=== PATIENT | male | born 1990 ===

== ENCOUNTER 2024-12-31 09:41 | Emergency (ER) | payer MEDICAID, SELFPAY ==
[2024-12-31 09:43] VITALS: BP 121/69; PULSE 82; RESP 14; TEMP 36.4; O2SAT 95; BMI 39.2
--- NOTE | 2024-12-31 10:45 | ED.GENADULT ---
HPI - General Adult General Chief complaint: Skin/Abscess/Foreign Body Stated complaint: ? Bug Bites Time Seen by Provider: 12/31/24 10:44 Source: patient Mode of arrival: ambulatory Limitations: no limitations History of Present Illness ED Provider: Anais Castañeda PA-C HPI narrative: 34-year-old male without significant medical history presents to the ED due to 2 days of swollen mosquito bites. [place] states he was bitten several times by mosquitos. Patient states he woke up Monday morning and noticed the bites swelling, with increased itching and clear drainage of multiple bites on bilateral forearms, right hand, left flank, and right neck. Patient states he has been using [id number] calamine lotion, Benadryl, and hydrocortisone cream without effect. Patient states he has been doing cold compresses and was able to sleep last night as it offered site relief. He denies difficulty breathing, throat swelling, Fever, chills, chest pain, shortness of breath, nausea, vomiting MD complaint: Multiple itching/swelling mosquito bites Onset (ago): day(s) (2 ) Location: neck, back ( left flank) and upper extremity ( B/ L forearms, right hand) Radiation: non-radiation Severity: mild Pain Consistency: constant Relieving factors: cold therapy Exacerbating factors: none Associated symptoms: denies other symptoms Related Data Previous Rx's ?Medication ?Instructions ?Recorded prednisone 20 mg tablet 20 mg PO DAILY 5 days #5 tabs 12/31/24 Allergies Allergy/AdvReac Type Severity Reaction Status Date / Time No Known Allergies Allergy Verified 12/31/24 09:45 Review of Systems Review of Systems: CONST: Negative for fever, body aches and chills. HENT: Negative for neck pain/stiffness, headache, congestion, sore throat, swelling. EYES: Negative for discharge/pain or vision changes. RESP: Negative for cough/hemoptysis and shortness of breath. CV: Negative chest pain, difficulty breathing, palpitations. ABD: Negative pain, nausea, vomiting. : Negative increase frequency, dysuria, blood in urine or stool. MUSC: Negative for muscle aches, edema. SKIN: Negative rash, lesions/sores. Multiple itching mosquito bites over B/L arms, R hand, L flank, L side neck NEURO: Negative headache, dizziness, weakness. Yes all other systems are reviewed and are negative [facility] Past Medical History Attestation statement: The following information was validated with the patient. Social History Social History Advance Directives: No Advance Directives Information Provided: Yes Do you have a plan to hurt others: No Plan Physical Exam ED Vital Signs: Vital Signs - 24 hr 12/31/24 09:43 Temperature 97.5 F Pulse Rate 82 Respiratory Rate 14 Blood Pressure 121/69 Pulse Oximetry 95 Oxygen Delivery Method Room Air BMI result Body Mass Index 39.2 GENERAL APPEARANCE: ?AxOx4, generally well-appearing, no acute distress. HEENT: ?NC, AT. MMM. EOMI, clear conjunctiva, oropharynx clear, without edema. NECK: ?Supple without lymphadenopathy.? No stiffness or restricted ROM. HEART:? Normal rate and regular rhythm, normal S1/S1, no m/r/g LUNGS:? CTAB, moving air well. No crackles or wheezes are heard. ABDOMEN: ?Soft, nontender, nondistended with good bowel sounds heard. BACK: No CVAT, no obvious deformity. EXTREMITIES: ?Without cyanosis, clubbing or edema. NEUROLOGICAL: ?Grossly nonfocal. Alert and oriented, moving all 4 extremities. Observed to ambulate with normal gait. Skin: ?Warm and dry without any rash. Multiple purititc, papular, warm, edematous mosquito bites over B/L forearms, R hand, L neck, and L flank. Medical Decision Making Medical Decision Making MDM Narrative: 34-year-old male without significant medical history presents to the ED due to 2 days of swollen mosquito bites. [place] states he was bitten several times by mosquitos. Patient states he woke up Monday morning and noticed the bites swelling, with increased itching and clear drainage of multiple bites on bilateral forearms, right hand, left flank, and right neck. Patient states he has been using [id number]-qpwfvrc calamine lotion, Benadryl, and hydrocortisone cream without effect. Patient states he has been doing cold compresses and was able to sleep last night as it offered site relief. He denies difficulty breathing, throat swelling, VSS, in no acute distress, nontoxic appearing. On physical exam there are multiple papular, pruritic, warm,edematous mosquito bite over B/ L forearms, right hand, left flank, left neck. No vesicular lesions- less likley herpes zoster. Patient without any swelling of the oropharynx, no difficulty breathing- less lilkely anaphylaxis. No erythema- less likley cellulitis This is most likely a systemic reaction to mosquito bites. 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 will medicate with a 5 day course of 20 mg prednisone for swelling, encourage patient to use [id number]-zvg-zlnsyih hydrocortisone lotion, and cold compresses for management. Differential Diagnosis Differential Diagnoses: The differential diagnosis associated with the presentation includes Cellulitis Herpes zoster Anaphylaxis Urticaria Admission/Observation Consideration of admission/observation: Escalation of care including admission/observation considered External Record Review External record reviewed: Inpatient record, Office record and Outpatient record Discharge Plan Discharge Clinical Impression: Mosquito bite allergy Patient Disposition: Home, Self-Care Instructions: Cold Compress or Soak (ED) Additional Instructions: you were evaluated in the ED today due to allergic reaction to mosquito bites. Your physical exam was reassuring, you had no swelling of your mouth or throat, lungs were clear when listening to them. The itchy lesions over your arms, back, neck, hand, were consistent with mosquito bites. You will be prescribed a 5 day course of 20 mg prednisone which is a steroid that will help manage the swelling. You should continue to use pfvz-vvp-thqobqf anti-itch medication such as the calamine lotion and hydrocortisone cream that you have been using. You should continue to do cold compresses or soaks to help relieve the pain and itching.In the future when you know you will be in contact with mosquitos you should take Zyrtec to help manage your allergic reaction. Please return to the emergency department if you experience difficulty breathing, itchiness of the lips,mouth or throat, chest pain, shortness of breath, nausea, vomiting, fevers over 100.4?, or any other new/ worsening/ concerning symptoms. Prescriptions: New prednisone 20 mg tablet 20 mg PO DAILY 5 Days Qty: 5 0RF Print Language: Singaporean
[2024-12-31 11:24] VITALS: BP 121/69; PULSE 82; RESP 14; TEMP 36.4; O2SAT 95
--- OUTSIDE RECORDS SUMMARY | 2024-12-31 11:31 | XMS_ITS | Encounter Summary ---
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 Name Role Phone Koffi Garcia MD Primary Care Provider [phone] Encounter Details Date Type Department Care Team (Late st Contact Info) Description 06/08/2010 Documentation EM Family Medicine [address] [place] [address] Family Medicine, Physician [address], [place] [id number] Social History Tobacco Use Types Packs/Day Years Used Date Smoking Tobacco: Never Assessed Sex and Gender Information Value Date Recorded Sex Assigned at Not on file Legal Sex Male 4:35 PM EDT Gender Identity Not on file Sexual Orientation Not on file documented as of this encounter Plan of Treatment Not on file documented as of this encounter Visit Diagnoses Not on filedocumented in this encounter Care Teams Pulp Making Plant Operator Relationship Specialty Start Date End Date Koffi Garcia MD [address] [place] [address] [place] [id number] PCP - General 02/10/17 08/31/22 documented as of this encounter
== END 2024-12-31 11:25 | disposition home or self-care (01) ==
PROVIDERS: Emergency Provider Emergency Medicine Emergency Medical Services
DX: S50.861A Insect bite (nonvenomous) of right forearm, initial encounter (principal); S60.562A Insect bite (nonvenomous) of left hand, initial encounter; S60.561A Insect bite (nonvenomous) of right hand, initial encounter; S10.96XA Insect bite of unspecified part of neck, initial encounter; W57.XXXA Bitten or stung by nonvenomous insect and other nonvenomous arthropods, initial encounter; Y93.9 Activity, unspecified; Y92.9 Unspecified place or not applicable; Y99.8 Other external cause status
CPT/HCPCS: 99282; 99283